=== PATIENT | male | born 1955 | race Caucasian/White ===

== ENCOUNTER 2016-04-26 12:08 | Emergency (ER) | payer MEDICARE, MEDICAID | END 2016-04-26 16:14 | disposition home or self-care (01) | LOC: ER 12:08 | DX: R42 Dizziness and giddiness (principal); K12.1 Other forms of stomatitis; R00.2 Palpitations; F17.210 Nicotine dependence, cigarettes, uncomplicated | CPT/HCPCS: 36415; 70450; 71010; 80053; 81003; 82140; 82550; 82947; 85025; 85610; 93005; 99284; G0479; 80307 ==